=== PATIENT | female | born 1970 | race Caucasian/White ===

== ENCOUNTER 2020-05-03 08:17 | Outpatient (CLI) | payer BC, SELFPAY ==
--- NOTE | ~2020-05-03 | MM_ITS ---
EXAMINATION: MM screening tanya BI w kay HISTORY: Screening TECHNIQUE: Craniocaudal and mediolateral oblique 3-D tomosynthesis images were obtained and synthetic 2-D images were generated. CAD analysis was submitted and interpreted. COMPARISON: Comparison to multiple prior studies sequentially, with oldest reviewed study dated 09/2013. BREAST PARENCHYMAL COMPOSITION: There are scattered areas of fibroglandular density. FINDINGS: There is no evidence of suspicious mass, calcification, or architectural distortion to sugg est malignancy in either breast. There has been no suspicious interval change. IMPRESSION: 1. No mammographic evidence of malignancy. 2. Recommend routine screening mammography in one year. BI-RADS Category 1: Negative Reviewed, dictated and finalized at location A.
== END 2020-05-03 08:18 | disposition home or self-care (01) ==
PROVIDERS: PCP Family Medicine; Visit Provider Student in an Organized Health Care Education/Training Program
DX: Z12.31 Encounter for screening mammogram for malignant neoplasm of breast (principal)
CPT/HCPCS: 77063; 77067

== ENCOUNTER → 2021-03-14 12:28 | Outpatient (CLI) | payer BC, SELFPAY ==
--- NOTE | ~2021-03-14 | XR_ITS ---
XR hand LT 2V DATE: 03/14/2021 13:01 INDICATION: Rheumatoid arthritis TECHNIQUE: AP and lateral views COMPARISON: None FINDINGS: There is mild osteoarthritis at the first metatarsophalangeal joint. No fracture, dislocation, periosteal reaction or bone destruction, chondrocalcinosis or erosive mathis e is evident. 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
--- NOTE | ~2021-03-14 | XR_ITS ---
XR wrist RT 2V DATE: 03/14/2021 13:01 INDICATION: Rheumatoid arthritis TECHNIQUE: AP and lateral views COMPARISON: None FINDINGS: No fracture, dislocation, periosteal reaction or bone destruction. Joint spaces are preserv ed. No chondrocalcinosis. No erosive change is noted. Mild osteoarthritis at the first metacarpophalangeal joint. 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
--- NOTE | ~2021-03-14 | XR_ITS ---
XR foot LT 2V DATE: 03/14/2021 13:01 INDICATION: Rheumatoid arthritis TECHNIQUE: AP and lateral views COMPARISON: None FINDINGS: There is very prominent posterior calcaneal enthesopathy as well as calcifications of the d istal Achilles tendon. Mild plantar calcaneal enthesopathy. There is mild osteoarthritis at the first and second metatarsophalangeal joints. No fracture, dislocation, periosteal reaction or bone destruction. No erosive change is evident. IMPRESSION: Mild plantar and very prominent posterior calcaneal enthesopathy Distal Achilles tendon calcifications Mild osteoarthritis at first and second metatarsophalangeal joints Reviewed, dictated and finalized at location B.
--- NOTE | ~2021-03-14 | XR_ITS ---
XR foot RT 2V DATE: 03/14/2021 13:01 INDICATION: Rheumatoid arthritis TECHNIQUE: AP and lateral views COMPARISON: None FINDINGS: Slight plantar calcaneal enthesopathy. Moderately prominent osteoarthritis at the first metatarsophalangeal joint. There is a circumscribed lucent 4 mm lesion of the head of the fifth metatarsal bone, benign in appea jacqueline. No fracture, dislocation, periosteal reaction or bone destruction or erosive change is evident otherw ise. IMPRESSION: Slight plantar calcaneal enthesopathy Moderately prominent osteoarthritic arthritis at the first metatarsophalangeal joint 4 mm benign cyst of fifth metatarsal head Reviewed, dictated and finalized at location B.
--- NOTE | ~2021-03-14 | XR_ITS ---
XR hand RT 2V DATE: 03/14/2021 13:01 INDICATION: Rheumatoid arthritis TECHNIQUE: AP and lateral views COMPARISON: None FINDINGS: There is mild osteoarthritis at the first metacarpophalangeal joint. No fracture, dislocation, periosteal reaction or bone destruction. No erosive change is evident. 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
--- NOTE | ~2021-03-14 | XR_ITS ---
XR wrist LT 2V DATE: 03/14/2021 13:01 INDICATION: Rheumatoid arthritis TECHNIQUE: AP and lateral views COMPARISON: None FINDINGS: No fracture or dislocation, periosteal reaction or bone destruction. No chondrocalcinosis. A small benign cyst is noted at the lateral aspect of the base of the ulnar styloid process. No erosi ve change is noted otherwise. IMPRESSION: No significant abnormality Reviewed, dictated and finalized at location B. IMPRESSION: No significant abnormality
== END ==
PROVIDERS: PCP Family Medicine
DX: M05.739 Rheumatoid arthritis with rheumatoid factor of unspecified wrist without organ or systems involvement (principal); Z79.899 Other long term (current) drug therapy; Z51.81 Encounter for therapeutic drug level monitoring; M77.31 Calcaneal spur, right foot; M19.072 Primary osteoarthritis, left ankle and foot; M19.042 Primary osteoarthritis, left hand; M77.32 Calcaneal spur, left foot; M19.071 Primary osteoarthritis, right ankle and foot; M19.041 Primary osteoarthritis, right hand; M19.031 Primary osteoarthritis, right wrist
CPT/HCPCS: 73100; 73120; 73620

== ENCOUNTER 2021-05-16 10:57 | Outpatient (CLI) | payer BC, SELFPAY ==
--- NOTE | ~2021-05-16 | MM_ITS ---
EXAMINATION: MM screening tanya BI w kay HISTORY: Screening TECHNIQUE: Craniocaudal and mediolateral oblique 3-D tomosynthesis images were obtained and synthetic 2-D images were generated. CAD analysis was submitted and interpreted. COMPARISON: Comparison to multiple prior studies sequentially, with oldest reviewed study dated 03/21. BREAST PARENCHYMAL COMPOSITION: There are scattered areas of fibroglandular density. FINDINGS: There is no evidence of suspicious mass, calcification, or architectural distortion to sugg est malignancy in either breast. There has been no suspicious interval change. IMPRESSION: 1. No mammographic evidence of malignancy. 2. Recommend routine screening mammography in one year. BI-RADS Category 1: Negative Reviewed, dictated and finalized at location A.
== END 2021-05-16 10:58 | disposition home or self-care (01) ==
PROVIDERS: PCP Family Medicine; Visit Provider Student in an Organized Health Care Education/Training Program
DX: Z12.31 Encounter for screening mammogram for malignant neoplasm of breast (principal)
CPT/HCPCS: 77063; 77067

== ENCOUNTER → 2022-01-11 13:00 | Outpatient (CLI) | payer BC, SELFPAY ==
--- NOTE | ~2022-01-11 | XR_ITS ---
EXAMINATION: XR heel LT min 2V DATE: 01/11/2022 13:26 INDICATION: Left heel pain. TECHNIQUE: 2 views of left calcaneus were obtained. COMPARISON: Left foot radiographs 03/14/2021 FINDINGS: Bone alignment is normal. No fracture. There is mild osteoarthritis of talonavicular joint. There are enthesophytes at the posterior and plantar aspects of calcaneal tuberosity. There is soft tissue swelling overlying the attachment of Achilles tendon on calcaneus, consistent with Emily def ormity. IMPRESSION: 1. Emily deformity. Reviewed, dictated and finalized at location A. IMPRESSION: 1. Emily deformity.
== END ==
PROVIDERS: PCP Family Medicine; Visit Provider Physician Assistant
DX: M79.672 Pain in left foot (principal); M92.62 Juvenile osteochondrosis of tarsus, left ankle
CPT/HCPCS: 73650

== ENCOUNTER → 2022-02-25 16:28 | Outpatient (CLI) | payer BC, SELFPAY ==
--- NOTE | ~2022-02-25 | XR_ITS ---
XR hand RT 2V DATE: 02/25/2022 16:50 INDICATION: Right hand pain TECHNIQUE: 3 views COMPARISON: None FINDINGS: There is a nondisplaced fracture of the tuft of the distal phalanx of the second digit. There is an intra-articular fracture of the medial base of the proximal phalanx of the second digit, including between one third one half of the base. There is minimal displacement. No other fracture or dislocation. There is osteoarthritis at the first metacarpophalangeal joint. IMPRESSION: Intra-articular fracture of the base of the proximal phalanx and nondisplaced fracture of the tuft of the distal phalanx, both fractures of the second digit Reviewed, dictated and finalized at location B. IMPRESSION: Intra-articular fracture of the base of the proximal phalanx and no ndisplaced fracture of the tuft of the distal phalanx, both fractures of the se cond digit
== END ==
PROVIDERS: PCP Family Medicine; Visit Provider Chiropractor
DX: S62.640A Nondisplaced fracture of proximal phalanx of right index finger, initial encounter for closed fracture (principal); X58.XXXA Exposure to other specified factors, initial encounter
CPT/HCPCS: 73120

== ENCOUNTER 2022-06-27 09:47 | Outpatient (CLI) | payer BC, SELFPAY ==
--- NOTE | ~2022-06-27 | MM_ITS ---
EXAMINATION: MM screening tanya BI w kay HISTORY: Screening mammogram TECHNIQUE: Craniocaudal and mediolateral oblique 3-D tomosynthesis images were obtained and synthetic 2-D images were generated. CAD analysis was submitted and interpreted. COMPARISON: 05/16/2021, 05/03/2020, 04/14/2019 BREAST PARENCHYMAL COMPOSITION: There are scattered areas of fibroglandular density. FINDINGS: RIGHT BREAST: No suspicious mass, calcification, or architectural distortion are identified to sugges t malignancy. There has been no suspicious interval change. LEFT BREAST: There is possible architectural distortion of the posterior third of the outer left neris st best appreciated 9 cm from the nipple on the craniocaudal view. IMPRESSION: 1. Possible left breast architectural distortion. 2. Additional mammographic views and possible breast ultrasound are recommended. BI-RADS Category 0: Incomplete: Needs additional imaging evaluation. Reviewed, dictated and finalized at location A. IMPRESSION: 1. Possible left breast architectural distortion. 2. Additional mammographic views and possible breast ultrasound are recommended . BI-RADS Category 0: Incomplete: Needs additional imaging evaluation.
== END 2022-06-27 09:48 | disposition home or self-care (01) ==
PROVIDERS: PCP Family Medicine; Visit Provider Student in an Organized Health Care Education/Training Program
DX: Z12.31 Encounter for screening mammogram for malignant neoplasm of breast (principal); R92.8 Other abnormal and inconclusive findings on diagnostic imaging of breast
CPT/HCPCS: 77063; 77067

== ENCOUNTER 2022-07-12 13:13 | Outpatient (CLI) | payer BC, SELFPAY ==
--- NOTE | ~2022-07-12 | MM_ITS ---
EXAMINATION: MM diagnostic tanya LT w kay HISTORY: Possible architectural distortion in posterior third of outer left breast 9 cm from nipple o n 06/27/2022 screening mammogram TECHNIQUE: Additional 3-D tomosynthesis images of the left breast were performed and synthetic 2-D im ages were generated. Rolled medial and rolled lateral CC Tomosynthesis views. CAD analysis was submit tahira and interpreted. COMPARISON: 06/27/2022, 05/16/2021, 05/03/2020 screening mammogramexaminations FINDINGS: No suspicious mass or architectural distortion, malignant calcification, skin thickening or retraction or significant new or developing density is detected. IMPRESSION: 1. No mammographic evidence of malignancy 2. Routine mammographic screening is recommended. BI-RADS Category 1: Negative Reviewed, dictated and finalized at location A. CTURAL SHOP HELPER
== END 2022-07-12 13:14 | disposition home or self-care (01) ==
LOC: ANHIMG 13:14
PROVIDERS: PCP Family Medicine; Visit Provider Student in an Organized Health Care Education/Training Program
DX: R92.8 Other abnormal and inconclusive findings on diagnostic imaging of breast (principal)
CPT/HCPCS: 77061; 77065; G0279

== ENCOUNTER → 2023-04-07 11:57 | Outpatient (CLI) | payer BC, SELFPAY ==
--- NOTE | ~2023-04-07 | XR_ITS ---
EXAMINATION:XR cervical spine 4-5V DATE: 04/07/2023 12:21 INDICATION: Right C5-C6 radiculopathy with constant cervical pain extending down the right arm. TECHNIQUE: AP, lateral, lateral swimmers, left and right oblique and odontoid views of the cervical s pine are provided. COMPARISON: Cervical spine radiographs dated 11/12/2011 and MRI dated 05/28/2012 FINDINGS: Alignment is normal. Odontoid is intact. Normal atlantoaxial interval. Vertebral body heights are no rmal. Mild disc height loss at C3-C4 and C4-C5, moderate disc height loss at C5-C6. Moderate uncovert ebral osteoarthritis resulting in mild neural foraminal stenosis on the left at C5-C6. Mild uncoverte bral osteoarthritis bilaterally at C3-C4, C4-C5 and on the right at C5-C6. Multilevel mild bilateral cervical facet osteoarthritis. No other significant neural foraminal stenosis. Prevertebral soft tis sues are normal. IMPRESSION: 1. Mild to moderate cervical spondylosis. Reviewed, dictated and finalized at location B.
== END ==
PROVIDERS: PCP Chiropractor; Visit Provider Chiropractor
DX: M47.22 Other spondylosis with radiculopathy, cervical region (principal)
CPT/HCPCS: 72050

== ENCOUNTER 2023-10-21 11:08 | Outpatient (CLI) | payer BC, SELFPAY ==
--- NOTE | ~2023-10-21 | XR_ITS ---
Bilateral Hands Technique: Bilateral PA, oblique, and lateral views, and ball-catcher's view were obtained. Clinical History: Rheumatoid arthritis Findings: No acute fracture or dislocation is seen. Osseous alignment is anatomic. Joint spaces are p reserved. Soft tissues are unremarkable. Impression: Unremarkable bilateral hand radiographs. Reviewed, dictated and finalized at location . K HANDLER Impression: Unremarkable bilateral hand radiographs.
--- NOTE | ~2023-10-21 | XR_ITS ---
Right foot Technique: AP, oblique, and lateral views were obtained. Clinical History: Rheumatoid arthritis Findings: No acute fracture or dislocation is seen. There is moderate osteoarthritic change at the fi rst MTP joint. Remaining joint spaces are intact. Soft tissues are unremarkable. Impression: Moderate osteoarthritic change of the first MTP joint. Reviewed, dictated and finalized at location . ER RESOURCE SPECIALIST Impression: Moderate osteoarthritic change of the first MTP joint.
--- NOTE | ~2023-10-21 | XR_ITS ---
Right wrist Technique: PA, oblique, lateral, and ulnar deviation views were obtained. Clinical History: Rheumatoid arthritis Findings: No acute fracture or dislocation is seen. Osseous alignment is anatomic. Joint spaces are p reserved. Soft tissues are unremarkable. Impression: Unremarkable right wrist radiographs. Reviewed, dictated and finalized at location . OUND MIXER Impression: Unremarkable right wrist radiographs.
--- NOTE | ~2023-10-21 | XR_ITS ---
Left wrist Technique: PA, oblique, lateral, and ulnar deviation views were obtained. Clinical History: Rheumatoid arthritis Findings: No acute fracture or dislocation is seen. Osseous alignment is anatomic. Joint spaces are p reserved. Soft tissues are unremarkable. Impression: Unremarkable left wrist radiographs. Reviewed, dictated and finalized at location . UNITY THEATER ACTOR Impression: Unremarkable left wrist radiographs.
--- NOTE | ~2023-10-21 | XR_ITS ---
Left foot Technique: AP, oblique, and lateral views were obtained. Clinical History: Rheumatoid arthritis Findings: No acute fracture or dislocation is seen. Osseous alignment is anatomic. Joint spaces are p reserved without erosive or degenerative change. There is prominent enthesopathic change at the Achil les tendon insertion. Impression: Enthesopathic change at the Achilles tendon insertion, otherwise unremarkable exam. Reviewed, dictated and finalized at location M. CIATE QUALITY ENGINEER Impression: Enthesopathic change at the Achilles tendon insertion, otherwise unremarkable e satya.
== END 2023-10-21 11:09 ==
DX: M05.739 Rheumatoid arthritis with rheumatoid factor of unspecified wrist without organ or systems involvement (principal); M19.071 Primary osteoarthritis, right ankle and foot
CPT/HCPCS: 73110; 73130; 73630

== ENCOUNTER 2023-11-27 11:29 | Outpatient (CLI) | payer BC, SELFPAY ==
--- NOTE | ~2023-11-27 | MM_ITS ---
EXAMINATION: MM screening tanya BI w kay HISTORY: Screening mammogram TECHNIQUE: Craniocaudal and mediolateral oblique 3-D tomosynthesis images were obtained and synthetic 2-D images were generated. CAD analysis was submitted and interpreted. COMPARISON: 07/12/2022 diagnostic left mammogram 06/27/2022, 05/16/2021 bilateral screening mammogram examinations BREAST PARENCHYMAL COMPOSITION: The breasts are almost entirely fatty. FINDINGS: There is no evidence of suspicious mass, calcification, or architectural distortion to sugg est malignancy in either breast. There has been no suspicious interval change. IMPRESSION: 1. No mammographic evidence of malignancy. 2. Recommend routine screening mammography in one year. BI-RADS Category 1: Negative Reviewed, dictated and finalized at location A.
== END 2023-11-27 11:30 ==
PROVIDERS: PCP Family Medicine; Visit Provider Family Medicine
DX: Z12.31 Encounter for screening mammogram for malignant neoplasm of breast (principal)
CPT/HCPCS: 77063; 77067

== ENCOUNTER 2024-11-23 12:57 | Outpatient (CLI) | payer BC, SELFPAY ==
--- NOTE | ~2024-11-23 | XR_ITS ---
EXAMINATION: [id number] DATE: 11/23/2024 13:47 INDICATION: Rheumatoid arthritis with rheumatoid factor. TECHNIQUE: 4 views of right foot including weight-bearing views were obtained. COMPARISON: Right foot radiographs 10/21/2023 FINDINGS: Alignment is normal. No fracture. There is moderate osteoarthritis of first metatarsophalan geal joint and mild osteoarthritis of some of the interphalangeal joints. IMPRESSION: 1. Polyarticular osteoarthritis. Reviewed, dictated and finalized at location A.
--- NOTE | ~2024-11-23 | XR_ITS ---
EXAMINATION: XR wrist LT min 3V, XR hand BI arthritis min 3V, XR wrist RT min 3V DATE: 11/23/2024 13:47 INDICATION: Rheumatoid arthritis TECHNIQUE: 1. Posteroanterior, ulnar deviation, oblique, and lateral views of the left wrist were obtained. 2. Posteroanterior, ulnar deviation, oblique, and lateral views of the 8 wrist were obtained. 3. Dorsal palmar, lateral, oblique views of the left and of the right hand and combined ball-catcher' s view of both hands were obtained. COMPARISON: none FINDINGS: Bone alignment is normal at the bilateral hands and wrists. Old healed fracture deformity at the base of the right second proximal phalanx. No acute fracture. Typical distribution of relatively symmetri c mild polyarticular osteoarthritis characterized by minimal to mild nonuniform joint space narrowing and tiny marginal osteophytes at the bilateral triscaphe joints and at multiple metacarpophalangeal and interphalangeal joints. Lucency with thin sclerotic margins consistent consistent with a chronic erosion at the base of the left styloid process. No other erosions identified. Soft tissues are unrem arkable. IMPRESSION: 1. Single likely chronic erosion at the base of the left styloid process which could be seen in setti ng of rheumatoid arthritis or a crystalline arthropathy such as gout. No other erosions identified at either hand or wrist. 2. Typical distribution of minimal reticular osteoarthritis at the bilateral hands. Reviewed, dictated and finalized at location B. IMPRESSION: 1. Single likely chronic erosion at the base of the left styloid process which could be seen in setting of rheumatoid arthritis or a crystalline arthropathy s uch as gout. No other erosions identified at either hand or wrist. 2. Typical distribution of minimal reticular osteoarthritis at the bilateral kruger nds. IMPRESSION: 1. Single likely chronic erosion at the base of the left styloid process which could be seen in setting of rheumatoid arthritis or a crystalline arthropathy s uch as gout. No other erosions identified at either hand or wrist. 2. Typical distribution of minimal reticular osteoarthritis at the bilateral kruger nds.
--- NOTE | ~2024-11-23 | XR_ITS ---
EXAMINATION: [id number] DATE: 11/23/2024 13:47 INDICATION: Rheumatoid arthritis with rheumatoid factor. TECHNIQUE: 4 views of left foot including weight-bearing views were obtained. COMPARISON: Left foot radiographs 10/21/2023 FINDINGS: Alignment is normal. No fracture. There is mild osteoarthritis of first and second metatars ophalangeal joints, third proximal interphalangeal joint, and talonavicular joint. There are enthesop hytes at the posterior and plantar aspects of calcaneal tuberosity. IMPRESSION: 1. Mild polyarticular osteoarthritis. Reviewed, dictated and finalized at location A.
== END 2024-11-23 12:58 | disposition home or self-care (01) ==
LOC: MICIMG 12:59
PROVIDERS: PCP Family Medicine; Visit Provider Internal Medicine Rheumatology
DX: M05.739 Rheumatoid arthritis with rheumatoid factor of unspecified wrist without organ or systems involvement (principal); M19.071 Primary osteoarthritis, right ankle and foot; M19.072 Primary osteoarthritis, left ankle and foot
CPT/HCPCS: 73110; 73130; 73630

== ENCOUNTER 2025-02-10 10:53 | Outpatient (CLI) | payer BC, SELFPAY ==
--- NOTE | ~2025-02-10 | MM_ITS ---
EXAMINATION: MM screening tanya BI w kay HISTORY: Screening TECHNIQUE: Craniocaudal and mediolateral oblique 3-D tomosynthesis images were obtained and synthetic 2-D images were generated. CAD analysis was submitted and interpreted. COMPARISON: Comparison to multiple prior studies sequentially, with oldest reviewed study dated 04/14. BREAST PARENCHYMAL COMPOSITION: Not dense: There are scattered areas of fibroglandular density. FINDINGS: There is no evidence of suspicious mass, calcification, or architectural distortion to sugg est malignancy in either breast. There has been no suspicious interval change. IMPRESSION: 1. No mammographic evidence of malignancy. 2. Recommend routine screening mammography in one year. BI-RADS Category 1: Negative Reviewed, dictated and finalized at location B.
== END 2025-02-10 10:54 | disposition home or self-care (01) ==
LOC: MICIMG 10:54
PROVIDERS: PCP Family Medicine; Visit Provider Family Medicine
DX: Z12.31 Encounter for screening mammogram for malignant neoplasm of breast (principal)
CPT/HCPCS: 77063; 77067

== ENCOUNTER 2025-07-05 09:55 | Outpatient (CLI) | payer BC, SELFPAY ==
--- OUTSIDE RECORDS SUMMARY | 2025-07-05 11:12 | XMS_ITS | Clinical Summary ---
Author Organization [facility] [employer] Address [address] [place] [address] Care Team Providers Care Fabrication Operator Name Role Phone Clifford Larson MD Primary Care Provider [phone] Source Comments [facility] [employer],non-owned Affiliates and Associated Physician Practices is amultiple site organization consisting of ambulatory clinics and hospital sitesin [place], [place], [place] and [place]. This disclosure is being madepursuant to the Care Everywhere program and may not contain all information available regarding this patient. Last updated 18.[facility] [employer] [employer] Allergies No known active allergies Medications * Be aware that medications may not be up to date on this document. Alwaysverify current medications with the patient. telmisartan (Micardis) 40 MG tablet Take 1 (one) tablet by mouth once daily 04/03/2023 Active adalimumab (Humira, 2 Pen,) 40 MG/0.4ML injectionIndicat ions:Rheumatoid arthritis involving wrist with positive rheumatoid factor, unspecified laterality (HCC) INJECT 1 PEN UNDER THE SKIN EVERY 14 DAYS 2.4 mL 2 11/02/2024 Active Active Problems No known active problems Encounters Date Type Department Care Team Description 06/01/2025 Telephone [facility] - Rheumatology [address] [place] [address], [place] [phone] Joel Aggarwal MD Medication Prior Auth Request (Humira) 05/12/2025 11:20 AM CDT Office Visit [facility] - Rheumatology [address] [place] [phone] Joel Aggarwal MD Rheumatoid arthritis involving wrist with positive rheumatoid factor, unspecified laterality (HCC) (Primary Dx); Screening-pulmonary TB; Immunosuppression due to drug therapy (HCC); High risk medications (not anticoagulants) long-term use 05/12/2025 Travel from Last 3 Months Social History Tobacco Use Types Packs/Day Years Used Date Smoking Tobacco: Never Smokeless Tobacco: Never Tobacco Cessation:Counseling Given: Not Answered Alcohol Use Standard Drinks/Week Comments Yes 0 (1 standard drink = 0.6 oz pur e alcohol) occasionally PHQ-2 Answer Date Recorded Patient Health Questionnaire-2 Score 0 11/04/2024 Comments No Sex and Gender Information Value Date Recorded Sex Assigned at Not on file 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 Gender Identity Not on file Sexual Orientation Not on file Last Filed Vital Signs Vital Sign Reading Time Taken Comments Blood Pressure 134/90 05/12/2025 10:53 AM CDT Pulse 71 05/12/2025 10:53 AM CDT Temperature 36.9 C (98.5 F) 05/06/2024 11:24 AM CDT Respiratory Rate - - Oxygen Saturation 100% 05/12/2025 10:53 AM CDT Inhaled Oxygen Concentration - - Weight 66.2 kg (146 lb) 05/12/2025 10:53 AM CDT Height 165.1 cm (5' 5) 05/12/2025 10:53 AM CDT Body Mass Index 24.3 05/12/2025 10:53 AM CDT Plan of Treatment Upcoming Encounters Date Type Department Care Team (Late st Contact Info) Description 11/15/2025 10:40 AM CDT Office Visit [facility] - Rheumatology [address] [place] [phone] Joel Aggarwal MD [address] [place] [address] [place] [phone] Health Maintenance Due Date Last Done Comments COLOGUARD (AGES 45-75) - COL ON CA SCREENING 1968 COLON MONITORING 1968 COLONOSCOPY - COLON CA SCREENING 1968 CT COLONOGRAPHY - COLON CA SCREENING 1968 Colorectal Cancer Screening 1968 FIT - COLON CA SCREENING 1968 FLEX SIG - COLON CA SCREENING 1968 LIPID TESTING 1968 MAMMOGRAM 1968 COVID-19 VACCINE (#1) 1973 HIV SCREENING 1983 DTAP/TDAP/TD VACCINES (1 - Tdap) 1987 HEPATITIS B VACCINE (1 of 3 - 19+ 3-dose series) 1987 PNEUMOCOCCAL VACCINE 50+ (1 of 2 - PCV) 1987 ZOSTER VACCINE (1 of 2) 1987 PAP SMEAR 1989 INFLUENZA VACCINE (#1) 2025 HEPATITIS C SCREENING Completed 03/14/2021 DEPRESSION SCREENING Completed 11/04/2024, 05/06/2024, 03/12/2022 HIB VACCINE Aged Out No longer eligi ble based on patient's age to complete this topic HPV VACCINE Aged Out No longer eligi ble based on patient's age to complete this topic MENINGOCOCCAL (Group B) VACCINE SHARED DECISION-MAKING Aged Out No longer eligible based on patient's age to complete this topic MENINGOCOCCAL GROUPS A/C/Y/W VACCINE Aged Out No longer eligible b ased on patient's age to complete this topic Procedures Procedure Name Priority Date/Time Associated Diagnosis Comments QUANTIFERON-TB GOLD PLUS 1-TUBE 05/18/2025 1:04 PM CDT COMPREHENSIVE METABOLIC PANEL Routine 05/18/2025 1:04 PM CDT Rheumatoid arthritis involving wrist with positive rheumatoid factor, unspecified laterality (HCC) CBC W AUTO DIFFERENTIAL Routine 05/18/2025 1:04 PM CDT Rheumatoid arthritis involving wrist with positive rheumatoid factor, unspecified laterality (HCC) HEPATITIS C AB W/RFLX TO HCV RNA QN PCR Routine 03/14/2021 12:16 PM CDT Rheumatoid arthritis involving wrist with positive rheumatoid factor, unspecified laterality Therapeutic drug monitoring High risk medications (not anticoagulants) long-term use Long-term use of immunosuppressant medication from Last 3 Months or Most Recently Relevant to Health Maintenance Results * QUANTIFERON-TB GOLD PLUS 1-TUBE (05/18/2025 1:04 PM CDT) Pathologist [facility] QuantiFERON TB Gold Plus NEGATIVE NEGATIVE [facility] Comment: Negative test result. M. tuberculosis complex infection unlikely. NIL 0.02 IU/mL [facility] MITOGEN MINUS NIL RESULT >10.00 IU/mL [facility] TB1-NIL 0.00 IU/mL [facility] TB2-NIL 0.00 IU/mL [facility] Comment: The Nil tube value reflects the background interferon gamma immune response of the patient's blood sample. This value has been subtracted from the patient's displayed TB and Mitogen results. Lower than expected results with the Mitogen tube prevent false-negative Quantiferon readings by detecting a patient with a potential immune suppressive condition and/or suboptimal pre-analytical specimen handling. The TB1 Antigen tube is coated with the M. tuberculosis-specific antigens designed to elicit responses from TB antigen primed CD4+ helper T-lymphocytes. The TB2 Antigen tube is coated with the M. tuberculosis-specific antigens designed to elicit responses from TB antigen primed CD4+ helper and CD8+ cytotoxic T-lymphocytes. For additional information, please refer to https://education.Quosis/faq/XER710 (This link is being provided for informational/ educational purposes only.) Test Performed at: [employer] [facility] [address] [place] [address] MARIO ALBERTO ECHAVARRIA MD 05/18/2025 1:04 PM CDT 05/18/2025 1:04 PM CDT Joel Aggarwal MD LAB - CHEMISTRY ORDERABLES Fi nal Result [facility] [id number] [place] [address] * CBC WITH DIFFERENTIAL (05/18/2025 1:04 PM CDT) Pathologist [facility] White Blood Cell Count 5.0 3.8 - 10.8 Thousand/u L [facility] RBC 4.55 3.80 - 5.10 Million/uL [facility] Hemoglobin 14.1 11.7 - 15.5 g/dL [facility] Hematocrit 42.3 35.0 - 45.0 % [facility] MCV 93.0 80.0 - 100.0 fL [facility] MCH 31.0 27.0 - 33.0 pg [facility] MCHC 33.3 32.0 - 36.0 g/dL [facility] Comment: For adults, a slight decrease in the calculated MCHC value (in the range of 30 to 32 g/dL) is most likely not clinically significant; however, it should be interpreted with caution in correlation with other red cell parameters and the patient's clinical condition. RDW 12.1 11.0 - 15.0 % [facility] Platelet Count 238 140 - 400 Thousand/u L [facility] MPV 11.6 7.5 - 12.5 fL [facility] Neutrophil Absolute 2795 1500 - 7800 cells/uL [facility] Lymphocytes Absolute 1540 850 - 3900 cells/uL [facility] Absolute Monocytes 260 200 - 950 cells/uL [facility] Eosinophils Absolute 335 15 - 500 cells/uL [facility] Basophils Absolute 70 0 - 200 cells/uL [facility] Granulocytes % 55.9 % [facility] Lymphocytes % 30.8 % [facility] Monocytes % 5.2 % [facility] Eosinophils % 6.7 % [facility] Basophils % 1.4 % [facility] Comment: Test Performed at: [facility] [address] [place] [address] MARIO ALBERTO ECHAVARRIA MD Blood BLOOD SPECIMEN / Unknown 05/18/2025 1:04 PM CDT 05/18/2025 1:04 PM CDT Joel Aggarwal MD LAB - HEMATOLOGY ORDERABLES F inal Result [facility] [id number] [place] [address] * COMPREHENSIVE METABOLIC PANEL (05/18/2025 1:04 PM CDT) [facility] Glucose 97 65 - 99 mg/dL [facility] Comment: Fasting reference interval BUN 13 7 - 25 mg/dL [facility] Creatinine 1.01 0.50 - 1.03 mg/dL [facility] eGFR by Cystatin C 65 > OR = 60 mL/min/1. 73m2 [facility] BUN/Creatinine Ratio SEE NOTE: 6 - 22 (calc) [facility] Comment: Not Reported: BUN and Creatinine are within reference range. Sodium 138 135 - 146 mmol/L [facility] Potassium 3.8 3.5 - 5.3 mmol/L [facility] Chloride 102 98 - 110 mmol/L [facility] CO2 29 20 - 32 mmol/L [facility] Calcium 9.7 8.6 - 10.4 mg/dL [facility] Protein Total 7.6 6.1 - 8.1 g/dL [facility] Albumin 4.8 3.6 - 5.1 g/dL [facility] Globulin Total 2.8 1.9 - 3.7 g/dL (calc) [facility] Albumin/Globulin Ratio 1.7 1.0 - 2.5 (calc) [facility] Bilirubin Total 0.6 0.2 - 1.2 mg/dL [facility] Alkaline Phosphatase 124 37 - 153 U/L [facility] AST 18 10 - 35 U/L [facility] ALT 15 6 - 29 U/L [facility] Comment: Test Performed at: [place] [address] MARIO ALBERTO ECHAVARRIA MD Blood BLOOD SPECIMEN / Unknown 05/18/2025 1:04 PM CDT 05/18/2025 1:04 PM CDT Joel Aggarwal MD LAB - CHEMISTRY ORDERABLES nal Result [facility] [id number] [place] [address] * HEPATITIS C AB W/RFLX TO HCV RNA QN PCR (03/14/2021 12:16 PM CDT) Hepatitis C Antibody NON-REACTI VE NON-REACT HEATHER [facility] Signal to Cut-Off 0.00 <1.00 [facility] Comment: HCV antibody was non-reactive. There is no laboratory evidence of HCV infection. In most cases, no further action is required. However, if recent HCV exposure is suspected, a test for HCV RNA (test code 97143) is suggested. For additional information please refer to http://education.Quosis/faq/LJU00b9 (This link is being provided for informational/ educational purposes only.) Test Performed at: [facility] [place] [address] TOBIAS العراقي DO,MPH Blood BLOOD SPECIMEN / Unknown 03/14/2021 12:16 PM CDT 03/14/2021 12:19 PM CDT Ada Higuera MD LAB - CHEMISTRY ORDERAB LES Final Result [facility] [address] [place] [address] from Last 3 Months or Most Recently Relevant to Health Maintenance Insurance ANTHEM ANTHEM Care Teams Fabrication Operator Relationship Specialty Start Date End Date Clifford Larson MD [address] [place] [id number] PCP - General 11/22/20
--- OUTSIDE RECORDS SUMMARY | 2025-07-05 11:12 | XMS_ITS | Encounter Summary ---
Author Organization [facility] Address [address] [facility] [place] [address] Care Team Providers Care Spanish Speaking Babysitter Name Role Phone Clifford Larson MD Primary Care Provider [phone] Encounter Details Date Type Department Care Team (Late st Contact Info) Description 10/11/2021 Telephone [facility] - Third Level [address] [place] [address], [place] [phone] Ada Higuera MD [address] [place] [address] [place] [address] Social History Tobacco Use Types Packs/Day Years Used Date Smoking Tobacco: Never Smokeless Tobacco: Never Alcohol Use Standard Drinks/Week Comments Yes 0 (1 standard drink = 0.6 oz pur e alcohol) PHQ-2 Answer Date Recorded PHQ2 TOTAL SCORE 0 07/10/2021 Comments Unknown Sex and Gender Information Value Date Recorded Sex Assigned at Not on file 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 Debbie Higuera Reason for call: Mrs. Cassidy Gómez called in re: her appt and if she still needs to continue doin labs every 2 weeks or does she just need labs prior to her 11/06/2021 appt. Please advise. Patient Call Back number: [phone] ET HAT PUNCHER documented in this encounter Plan of Treatment Upcoming Encounters Date Type Department Care Team (Late st Contact Info) Description 11/15/2025 10:40 AM CDT Office Visit [facility] - Rheumatology [address] [place] [address], [place] [phone] Joel Aggarwal MD [address] [place] [address] [place] [phone] documented as of this encounter Visit Diagnoses Not on filedocumented in this encounter Care Teams Spanish Speaking Babysitter Relationship Specialty Start Date End Date Clifford Larson MD [address] [place] [id number] PCP - General 11/22/20 documented as of this encounter
--- OUTSIDE RECORDS SUMMARY | 2025-07-05 11:12 | XMS_ITS | Encounter Summary ---
Author Organization [facility] Address [address] [facility] [place] [address] Care Team Providers Care Continuous Towel Roller Name Role Phone Clifford Larson MD Primary Care Provider [phone] Encounter Details Date Type Department Care Team (Late st Contact Info) Description 04/16/2021 Telephone [facility] [address] [place] [address] Ada Higuera MD [address] [address] Social History Tobacco Use Types Packs/Day Years Used Date Smoking Tobacco: Never Smokeless Tobacco: Never Alcohol Use Standard Drinks/Week Comments Yes 0 (1 standard drink = 0.6 oz pur e alcohol) Comments Unknown Sex and Gender Information Value Date Recorded Sex Assigned at Not on file 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 Ada Higuera Reason for call: Ms. Cassidy Gómez called about when she takes her methotrexate 2.5 MG tablet onFrs the next day she has no appetite and she is very tired. Friday she starts feeling fine and has her appetite back. What is a solution. Is this normal? Could she change days she takes it so shedoesn't feel bad all weekend. Patient Call Back number: [phone] documented in this encounter Plan of Treatment Upcoming Encounters Date Type Department Care Team (Late st Contact Info) Description 11/15/2025 10:40 AM CDT Office Visit [facility] - Rheumatology [address] [place] [address], [place] [address] Joel Aggarwal MD [address] [place] [address] [place] [phone] documented as of this encounter Visit Diagnoses Not on filedocumented in this encounter Care Teams Continuous Towel Roller Relationship Specialty Start Date End Date Clifford Larson MD [address] [place] [id number] PCP - General 11/22/20 documented as of this encounter
== END 2025-07-05 09:56 | disposition home or self-care (01) ==
LOC: ANHGOSHLAB 09:55
PROVIDERS: PCP Family Medicine; Visit Provider Family Medicine
DX: E78.2 Mixed hyperlipidemia (principal)
CPT/HCPCS: 36415